=== PATIENT | female | born 1990 | race Caucasian/White ===

== ENCOUNTER 2016-09-12 19:24 | Emergency (ER) | payer MEDICAID, OTHER ==
[~2016-09-12] VITALS: Ht 157.5 cm; Wt 71.3 kg
[~2016-09-12 19:24] MED LIST: PROM1SUP12 PR; ZOFR4TAB3 SL
[2016-09-12 19:36] VITALS: BP 119/84; PULSE 85; RESP 18; TEMP 98.1; O2SAT 98
[2016-09-12] MEDS ORDERED: SODIUM CHLOR 0.9% 1000 ML INJ 1,000 ML IV SCH (20:18)
--- NOTE | 2016-09-12 20:22 | PD ---
HPI Chief Complaint: Abdominal Pain Time Seen by Provider: 19:59 Travel History International Travel<30 days: No Contact w/Intl Traveler<30days: No Traveled to known affect area: No History of Present Illness HPI 26-year-old female here for evaluation of umbilical pain and nausea. Patient was a symptoms have been going on for last 4 days, have been constant, worse with movement and palpation, moderate to severe. Patient describes the pain as it feels like something is trying to leave her abdomen. No history of abdominal surgeries. No vaginal bleeding or discharge. No urinary symptoms. She feels nauseous but has not vomited. Last bowel movement was earlier today and was normal. PFSH Past Medical History GERD: Yes ("GASTRITIS") Tetanus Vaccination: < 5 Years Influenza Vaccination: No ?: Not LMP: JULY 2016 : 1 Para: 1 Miscarriage: 0 : 0 Ovarian Cysts: Yes Past Surgical History Gynecologic Surgery: Yes (IUD PLACED IN 06/2009, REMOVED 2013) Social History Alcohol Use: No Tobacco Use: No Substance Use: No Allergies-Medications (Allergen,Severity, Reaction): Coded Allergies: No Known Allergies (Verified , 09/12/16) Reported Meds & Prescriptions Reported Meds & Active Scripts Active Tramadol (Tramadol HCl) 50 Mg Tab 50 Mg PO Q6H PRN Flagyl (Metronidazole) 500 Mg Tab 500 Mg PO BID 7 Days Review of Systems Except as stated in HPI: all other systems reviewed are Neg Physical Exam Narrative GENERAL: Well-developed, well-nourished, no acute distress. SKIN: Focused skin assessment warm/dry. Mild umbilical erythema without warmth or purulent drainage. HEAD: Atraumatic. Normocephalic. EYES: Pupils equal and round. No scleral icterus. No injection or drainage. ENT: Mucous membranes pink and moist. NECK: Trachea midline. No JVD. CARDIOVASCULAR: Regular rate and rhythm. RESPIRATORY: No accessory muscle use. Clear to auscultation. Breath sounds equal bilaterally. GASTROINTESTINAL: Abdomen soft, nondistended. Significant umbilical and periumbilical tenderness with very tiny palpable nodule/mass. Rest of abdomen is soft and nontender. Normal bowel sounds. GOAT DRIVER: Exam performed in the presence of female nurse. Normal external genitalia. Normal cervix. Scant/whitish/[id number] vaginal discharge. No CMT. No adnexal masses or tenderness. MUSCULOSKELETAL: No obvious deformities. No clubbing. No cyanosis. No edema. NEUROLOGICAL: Awake and alert. No obvious cranial nerve deficits. Motor grossly within normal limits. Normal speech. PSYCHIATRIC: Appropriate mood and affect; insight and judgment normal. Data Data Last Documented VS Vital Signs Date Time Temp Pulse Resp B/P Pulse Ox O2 Delivery O2 Flow Rate FiO2 09/12/16 21:58 98.1 81 16 105/59 98 Room Air Orders Ed Urine Pregnancytest Poc (09/12/16 20:05) Complete Blood Count With Diff (09/12/16 20:18) Comprehensive Metabolic Panel (09/12/16 20:18) Lipase (09/12/16 20:18) Lactic Acid (09/12/16 20:18) Prothrombin Time / Inr (Pt) (09/12/16 20:18) Act Partial Throm Time (Ptt) (09/12/16 20:18) Urinalysis - C+S If Indicated (09/12/16 20:18) Ct Abd/Pel W Iv Contrast(Rout) (09/12/16 20:18) Iv Access Insert/Monitor (09/12/16 20:18) Ecg Monitoring (09/12/16 20:18) Oximetry (09/12/16 20:18) Morphine Inj (Morphine Inj) (09/12/16 20:30) Ondansetron Inj (Zofran Inj) (09/12/16 20:30) Sodium Chlor 0.9% 1000 Ml Inj (Ns 1000 M (09/12/16 20:18) Sodium Chloride 0.9% Flush (Ns Flush) (09/12/16 20:30) Iohexol 350 Inj (Omnipaque 350 Inj) (09/12/16 21:25) Ketorolac Inj (Toradol Inj) (09/12/16 21:45) Gc And Chlamydia Pcr (09/12/16 21:45) Wet Prep Profile (09/12/16 21:45) Us Pelvis Comp W Doppler (09/12/16 21:45) Metronidazole (Flagyl) (09/12/16 22:15) Labs Laboratory Tests Test 09/12/16 09/12/16 09/12/16 20:05 20:25 21:50 Urine Color YELLOW Urine Turbidity CLEAR Urine pH 5.5 Urine Specific [place] 1.023 Urine Protein NEG mg/dL Urine Glucose (UA) NEG mg/dL Urine Ketones NEG mg/dL Urine Occult Blood NEG Urine Nitrite NEG Urine Bilirubin NEG Urine Leukocyte Esterase NEG Urine Squamous Epithelial 0-5 /hpf Cells Urine Hyaline Casts 0-2 /lpf Urine Mucus FEW /lpf Microscopic Urinalysis Comment CULT NOT INDICATED White Blood Count 7.9 TH/MM3 Red Blood Count 4.27 MIL/MM3 Hemoglobin 13.0 GM/DL Hematocrit 37.6 % Mean Corpuscular Volume 88.0 FL Mean Corpuscular Hemoglobin 30.4 PG Mean Corpuscular Hemoglobin 34.6 % Concent Red Cell Distribution Width 12.9 % Platelet Count 233 TH/MM3 Mean Platelet Volume 8.5 FL Neutrophils (%) (Auto) 61.6 % Lymphocytes (%) (Auto) 27.8 % Monocytes (%) (Auto) 6.0 % Eosinophils (%) (Auto) 3.2 % Basophils (%) (Auto) 1.4 % Neutrophils # (Auto) 4.8 TH/MM3 Lymphocytes # (Auto) 2.2 TH/MM3 Monocytes # (Auto) 0.5 TH/MM3 Eosinophils # (Auto) 0.3 TH/MM3 Basophils # (Auto) 0.1 TH/MM3 CBC Comment DIFF FINAL Differential Comment Prothrombin Time 11.9 SEC Prothromb Time International 1.1 RATIO Ratio Activated Partial 27.8 SEC Thromboplast Time Sodium Level 141 MEQ/L Potassium Level 4.1 MEQ/L Chloride Level 106 MEQ/L Carbon Dioxide Level 26.9 MEQ/L Anion Gap 8 MEQ/L Blood Urea Nitrogen 11 MG/DL Creatinine 0.52 MG/DL Estimat Glomerular Filtration 141 ML/MIN Rate Random Glucose 101 MG/DL Lactic Acid Level 0.8 mmol/L Calcium Level 8.7 MG/DL Total Bilirubin 0.4 MG/DL Aspartate Amino Transf 8 U/L (AST/SGOT) Alanine Aminotransferase 22 U/L (ALT/SGPT) Alkaline Phosphatase 74 U/L Total Protein 6.7 GM/DL Albumin 3.5 GM/DL Lipase 80 U/L Clue Cells (Wet Prep) PRESENT Vaginal Trichomonas (Wet Prep) NONE SEEN Vaginal Yeast (Wet Prep) NONE SEEN MDM Medical Decision Making Medical Screen Exam Complete: Yes Emergency Medical Condition: Yes Differential Diagnosis Umbilical hernia, appendicitis, cystitis, PID less likely, colitis, diverticulitis Narrative Course Vital signs are within normal limits. CBC is unremarkable. CMP is unremarkable. Lactic acid is 0.8. Lipase is 80. UA is within normal limits. CT abdomen pelvis: CONCLUSION: 1. Normal appendix. 2. Bilateral ovarian cyst and trace pelvic free fluid. 3. No abdominal hernia. Patient was made aware of all findings. She is resting comfortably. She states that her pain is still 7 out of 10. Pelvic exam will be performed and pelvic ultrasound to rule out torsion. Wet prep is positive for clue cells. The patient will be started on Flagyl. Pelvic ultrasound: CONCLUSION: 1. Probable involuting cyst left ovary measuring 2.6 cm. 2. Normal flow to the ovaries. Patient was made aware of all findings. She is resting comfortably. She is stable for discharge home with outpatient follow-up with a primary care physician this week. She was also instructed to follow-up with an [facility] doctor this week. She was informed on when to return to the emergency department. She verbalizes understanding and agreement with plan. Diagnosis Primary Impression: Ovarian cyst Additional Impression: Bacterial vaginosis Referrals: [facility] 3 days English And Reading Instructor 3 days Primary Care Physician 3 days Additional Instructions: Follow-up with a primary care physician this week. Follow-up with an [facility] doctor this week. Return to the emergency department for worsening symptoms or any other concerns. Scripts Tramadol 50 Mg Tab50 Mg PO Q6H PRN (PAIN) #15 TAB Ref 0 Prov:Saad Sanders MD 09/12/16 Metronidazole (Flagyl)500 Mg Sql676 Mg PO BID 7 Days Ref 0 Prov:Saad Sanders MD 09/12/16 Disposition: 01 DISCHARGE HOME Condition: Stable Saad Sanders MD September 12, 2016 20:22
[2016-09-12] MEDS ORDERED: SODIUM CHLORIDE 0.9% FLUSH 10 ML FLUSH IV FLUSH PRN (20:30)
[2016-09-12] MEDS ORDERED: MORPHINE SULFATE 4 MG/ML INJ IV PUSH ONE (20:30)
[2016-09-12] MEDS ORDERED: ONDANSETRON HCL 4 MG/2 ML VIAL IVP ONE (20:30)
[2016-09-12 20:38] LABS: AUTOMATED NEUTROPHIL # 4.8 TH/MM3 (1.8-7.7); BASOPHIL # 0.1 TH/MM3 (0-0.2); BASOPHIL % 1.4 % (0.0-2.0); EOSINOPHIL # 0.3 TH/MM3 (0-0.4); EOSINOPHIL % 3.2 % (0.0-4.0); HEMATOCRIT 37.6 % (35.0-46.0); HEMO FLAGS DIFF FINAL; LYMPH % 27.8 % (9.0-44.0); LYMPHOCYTE # 2.2 TH/MM3 (1.0-4.8); MEAN CORPUSCULAR HEMOGLOBIN 30.4 PG (27.0-34.0); MEAN CORPUSCULAR HGB CONC 34.6 % (32.0-36.0); NEUT % 61.6 % (16.0-70.0); PLATELET COUNT 233 TH/MM3 (150-450); RED BLOOD COUNT 4.27 MIL/MM3 (4.00-5.30); RED CELL DISTRIBUTION WIDTH 12.9 % (11.6-17.2); WHITE BLOOD COUNT 7.9 TH/MM3 (4.0-11.0)
[2016-09-12 20:40] VITALS: PULSE 81; RESP 16; O2SAT 99
[2016-09-12 20:40] LABS: BLOOD, URINE NEG (NEG); GLUCOSE,URINE NEG (NEG); KETONE, URINE NEG (NEG); NITRITE,URINE NEG (NEG); PH, URINE 5.5 (5.0-8.5)
[2016-09-12 20:47] LABS: CHLORIDE 106 MEQ/L (98-107); POTASSIUM 4.1 MEQ/L (3.5-5.1); SODIUM (NA) 141 MEQ/L (136-145)
[2016-09-12 20:50] LABS: ANION GAP 8 MEQ/L (5-15); BICARBONATE 26.9 MEQ/L (21.0-32.0)
[2016-09-12 20:51] LABS: BLOOD UREA NITROGEN 11 MG/DL (7-18)
[2016-09-12 20:53] LABS: ALT (GPT) 22 U/L (10-53); AST (GOT) 8 U/L (15-37)
[2016-09-12 20:54] LABS: GLOMERULAR FILTRATION RATE 141 ML/MIN (>89)
[2016-09-12 20:55] LABS: TOTAL BILIRUBIN ADULT 0.4 MG/DL (0.2-1.0)
[2016-09-12 20:56] LABS: ALKALINE PHOSPHATASE 74 U/L (45-117)
[2016-09-12 20:57] LABS: URINE COLOR YELLOW (YELLW/STRAW)
[2016-09-12 20:58] LABS: MUCUS URINE FEW /lpf (OCC)
[2016-09-12 20:59] LABS: SQUAMOUS EPITHELIAL CELL URINE 0-5 /hpf (0-5)
[2016-09-12 21:00] LABS: COMMENT (UR) CULT NOT INDICATED; CULTURE IF INDICATED CULT NOT INDICATED; HYALINE CAST, URINE 0-2 /lpf (RARE)
[2016-09-12] MEDS ORDERED: IOHEXOL 350 MG/ML 10 ML VIAL (for RAD DIAG) IV ONE (21:25)
--- NOTE | 2016-09-12 21:36 | RADHPO ---
EXAM DATE/TIME: 09/12/2016 21:06 [facility] COMPARISON: No previous studies available for comparison. INDICATIONS : Periumbilical pain. Evaluate for hernia versus appendicitis. IV CONTRAST: 100 cc Omnipaque 350 (iohexol) IV ORAL CONTRAST: No oral contrast ingested. RADIATION DOSE: 9.24 CTDIvol (mGy) MEDICAL HISTORY : None SURGICAL HISTORY : None. ENCOUNTER: Initial ACUITY: 3 days PAIN SCALE: 9/10 LOCATION: Umbilical TECHNIQUE: Volumetric scanning of the abdomen and pelvis was performed. Using automated exposure control and ad justment of the mA and/or kV according to patient size, radiation dose was kept as low as reasonably achievable to obtain optimal diagnostic quality images. FINDINGS: LOWER LUNGS: The visualized lower lungs are clear. LIVER: Homogeneous density without lesion. There is no dilation of the biliary tree. No calcified gallston es. SPLEEN: Normal size without lesion. PANCREAS: Within normal limits. KIDNEYS: Normal in size and shape. There is no mass, stone or hydronephrosis. ADRENAL GLANDS: Within normal limits. VASCULAR: There is no aortic aneurysm. BOWEL/MESENTERY: The stomach, small bowel, and colon demonstrate no acute abnormality. There is no free intraperitone al air or fluid. Appendix is normal. ABDOMINAL WALL: Within normal limits. RETROPERITONEUM: There is no lymphadenopathy. BLADDER: No wall thickening or mass. REPRODUCTIVE: Bilateral ovarian cysts. Trace pelvic free fluid. INGUINAL: There is no lymphadenopathy or hernia. MUSCULOSKELETAL: Within normal limits for patient age. CONCLUSION: 1. Normal appendix. 2. Bilateral ovarian cyst and trace pelvic free fluid. 3. No abdominal hernia. Scott Sutherland MD on September 12, 2016 at 21:29 Board Certified Radiologist. This report was verified electronically.
[2016-09-12] MEDS ORDERED: KETOROLAC TROMETHAMINE 30 MG/ML (IVP) VIAL IV PUSH ONE (21:45)
[2016-09-12 21:58] VITALS: BP 105/59; PULSE 81; RESP 16; TEMP 98.1; O2SAT 98
[2016-09-12 21:58] LABS: APTT (PATIENT) 27.8 SEC (24.3-30.1); INTERNATIONAL NORMALIZED RATIO 1.1 RATIO; PROTHROMBIN TIME - PATIENT 11.9 SEC (9.8-11.6)
[2016-09-12] MEDS ORDERED: metroNIDAZOLE 500 MG TAB PO ONE (22:15)
--- NOTE | 2016-09-12 22:48 | RADHPO ---
EXAM DATE/TIME: 09/12/2016 22:13 [facility] COMPARISON: No previous studies available for comparison. INDICATIONS : Pelvic pain. MEDICAL HISTORY : Gastroesophageal reflux disease. Ovarian cysts. SURGICAL HISTORY : Implanon placement. ENCOUNTER: Initial ACUITY: 3 days PAIN SCORE: 3/10 LOCATION: Bilateral pelvis MEASUREMENTS: UTERUS: 6.9 x 2.5 x 4.7 cm ENDOMETRIAL STRIPE: 4 mm RIGHT OVARY: 3.1 x 2.5 x 2.7 cm LEFT OVARY: 3.3 x 1.8 x 2.1 cm FINDINGS: UTERUS: The myometrium has homogeneous echotexture without mass. RIGHT OVARY: Follicles are seen in the right ovary measuring 16 and 15 mm. Normal flow. LEFT OVARY: irregular cystic structure left ovary measures 23 x 26 x 20 mm. Normal flow. MISCELLANEOUS: No free fluid. CONCLUSION: 1. Probable involuting cyst left ovary measuring 2.6 cm. 2. Normal flow to the ovaries. Scott Sutherland MD on September 12, 2016 at 22:44 Board Certified Radiologist. This report was verified electronically.
[2016-09-12] MEDS ORDERED: METR-1 PO (23:36)
[2016-09-12] MEDS ORDERED: TRAM50TA PO (23:37)
[2016-09-13 01:20] LABS: CHLAMYDIA PCR NOT DETECTED (NOT DETECT); NEISSERIA PCR NOT DETECTED (NOT DETECT)
== END 2016-09-12 23:50 | disposition home or self-care (01) ==
LOC: PHED 19:24
DX: N83.202 Unspecified ovarian cyst, left side (principal); N83.201 Unspecified ovarian cyst, right side; N76.0 Acute vaginitis; R11.0 Nausea; Z87.19 Personal history of other diseases of the digestive system
CPT/HCPCS: 74177; 76856; 80053; 81001; 83605; 83690; 84703; 85025; 85610; 85730; 87210; 87491; 87591; 93975; 96361; 96374; 96375; 99284; J1885; J2270; J2405; J7030; Q9967